=== PATIENT | male | born 1965 | race Caucasian/White ===

== ENCOUNTER 2017-02-01 17:45 | Emergency (ER) | payer BC, OTHER ==
[~2017-02-01] VITALS: Ht 182.9 cm; Wt 123.9 kg
[2017-02-01 18:58] LABS: BASOPHIL COUNT 0.1 K/uL (0-0.1); EOSINOPHIL (%) 0.2 % (0-5); HEMATOCRIT 45.7 % (38.0-50.0); IMMATURE GRANULOCYTE (%) 0.5 % (0.0-0.7); IMMATURE GRANULOCYTE COUNT 0.1 K/uL; INSTRUMENT ABS NEUTROPHIL CT 13.3 K/uL; LYMPHOCYTE COUNT 1.4 K/uL (1.0-2.8); MCH 34.7 PG (29.0-34.0); MCHC 34.4 G/DL (30.0-36.0); MCV 100.9 FL (86-99); MEAN PLAT.VOLUME 9.7 uM^3 (9.0-12.4); MONOCYTE (%) 7.1 % (3-12); MONOCYTE COUNT 1.1 K/uL (0-0.8); NEUTROPHIL (%) 83.3 % (45-76); NEUTROPHIL COUNT 13.3 K/uL (1.8-6.4); PLATELET COUNT 204 K/uL (156-360); RBC DIS.WIDTH-CV 13.6 % (11.8-14.6); RBC DIS.WIDTH-SD 51.4 % (39-53); RED BLOOD COUNT 4.53 M/uL (4.00-5.50)
[2017-02-01 19:10] LABS: CHLORIDE 100 mEq/L (99-109); POTASSIUM 4.2 mEq/L (3.7-5.4)
[2017-02-01 19:11] LABS: SODIUM 137 mEq/L (136-147)
[2017-02-01 19:13] LABS: GLUCOSE 112 mg/dL (70-99)
[2017-02-01 19:14] LABS: ANION GAP 13 MEQ/L (2-14)
[2017-02-01 19:15] LABS: TOTAL BILIRUBIN 1.6 mg/dL (0.0-1.0)
[2017-02-01 19:16] LABS: ALKALINE PHOSPHATASE 59 IU/L (3-129); GFR ESTIMATE (CALCULATED) > 59 mL/min/ (58.99-99999)
[2017-02-01 19:18] LABS: UREA NITROGEN (BUN) 10 mg/dL (9-23)
[2017-02-01 19:20] LABS: LIPASE 21 U/L (1.0-51.0)
[2017-02-01] MEDS ORDERED: ZOFRAN ODT4 MG PO (20:21)
[2017-02-01] MEDS ORDERED: PERCOCET 5/31 TABLET PO (20:21)
[2017-02-01] MEDS ORDERED: FLAGYL500 MG PO (20:21)
[2017-02-01] MEDS ORDERED: CIPRO500 MG PO (20:21)
[2017-02-01 20:35] LABS: ADD MIUA? YES; BILIRUBIN NEGATIVE; BLOOD SMALL; COLOR YELLOW ((YELLOW)); GLUCOSE (STRIP) NEGATIVE; KETONES NEGATIVE; LEUKOCYTES NEGATIVE; NITRITE NEGATIVE; PROTEIN (STRIP) 30; UROBILINOGEN 0.2 MG/DL (0.2-1.0)
[2017-02-01 20:52] LABS: BACTERIA NONE SEEN /HPF; EPITHELIAL CELLS RARE /HPF; MUCUS NONE SEEN /LPF; RED BLOOD CELLS 0-5 /HPF (0-5); WHITE BLOOD CELLS 0-5 /HPF (0-5)
[2017-02-01 21:11] VITALS: BP 139/107
== END 2017-02-01 21:11 | disposition home or self-care (01) ==
LOC: EME 17:45
PROVIDERS: Physician Assistant
DX: K57.32 Diverticulitis of large intestine without perforation or abscess without bleeding (principal); I10 Essential (primary) hypertension; M10.9 Gout, unspecified
CPT/HCPCS: 74177; 80053; 81003; 83690; 85025; 99281; 99285; J2405; J3010; J7030

== ENCOUNTER 2017-02-27 22:30 | Emergency (ER) | payer BC, OTHER ==
[~2017-02-27] VITALS: Ht 185.4 cm; Wt 126.7 kg
[~2017-02-27 22:30] MED LIST: CIPRO500 MG PO; FLAGYL500 MG PO; PERCOCET 5/31 TABLET PO; ZOFRAN ODT4 MG PO
[2017-02-28 00:03] LABS: HEMOGLOBIN 16.2 G/DL (12.5-16.6); MCH 34.7 PG (29.0-34.0); MCHC 35.2 G/DL (30.0-36.0); MCV 98.5 FL (86-99); PLATELET COUNT 177 K/uL (156-360); RBC DIS.WIDTH-CV 13.4 % (11.8-14.6); RBC DIS.WIDTH-SD 48.1 % (39-53); RED BLOOD COUNT 4.67 M/uL (4.00-5.50); WHITE BLOOD COUNT 10.6 K/uL (4.1-10.2)
[2017-02-28 00:13] LABS: ALBUMIN 4.8 g/dL (3.2-4.8)
[2017-02-28 00:14] LABS: CHLORIDE 103 mEq/L (99-109); POTASSIUM 3.9 mEq/L (3.7-5.4); SODIUM 135 mEq/L (136-147)
[2017-02-28 00:16] LABS: GLUCOSE 134 mg/dL (70-99); TOTAL PROTEIN 8.1 g/dL (6.4-8.3)
[2017-02-28 00:18] LABS: TOTAL BILIRUBIN 1.1 mg/dL (0.0-1.0)
[2017-02-28 00:19] LABS: ALKALINE PHOSPHATASE 60 IU/L (3-129)
[2017-02-28 00:20] LABS: GFR ESTIMATE (CALCULATED) > 59 mL/min/ (58.99-99999)
[2017-02-28 00:21] LABS: AST (GOT) 32 IU/L (2-34); UREA NITROGEN (BUN) 18 mg/dL (9-23)
[2017-02-28 00:23] LABS: ALT (GPT) 46 IU/L (3-49)
[2017-02-28 01:06] LABS: APPEARANCE CLEAR ((CLEAR)); BILIRUBIN NEGATIVE; BLOOD SMALL; COLOR YELLOW ((YELLOW)); GLUCOSE (STRIP) NEGATIVE; KETONES 5; LEUKOCYTES NEGATIVE; NITRITE NEGATIVE; PROTEIN (STRIP) 100; SPECIFIC GRAVITY 1.024 (1.000-1.030); UROBILINOGEN 0.2 MG/DL (0.2-1.0)
[2017-02-28 01:13] LABS: BACTERIA NONE SEEN /HPF; EPITHELIAL CELLS RARE /HPF; HYALINE CASTS 0-5 /LPF; MUCUS TRACE /LPF; RED BLOOD CELLS 0-5 /HPF (0-5); UCUL ADDED? NO; WHITE BLOOD CELLS 0-5 /HPF (0-5)
[2017-02-28] MEDS ORDERED: PERCOCET 5/31 TABLET PO (02:29)
[2017-02-28] MEDS ORDERED: VALIUM5 MG PO (02:29)
[2017-02-28] MEDS ORDERED: ZOFRAN ODT4 MG PO (02:32)
[2017-02-28 03:51] VITALS: BP 111/75
== END 2017-02-28 03:51 | disposition home or self-care (01) ==
LOC: EME 22:30
PROVIDERS: Physician Assistant
DX: S29.011A Strain of muscle and tendon of front wall of thorax, initial encounter (principal); B34.9 Viral infection, unspecified; I10 Essential (primary) hypertension; M10.9 Gout, unspecified; K57.92 Diverticulitis of intestine, part unspecified, without perforation or abscess without bleeding; Y93.H9 Activity, other involving exterior property and land maintenance, building and construction
CPT/HCPCS: 71101; 80053; 81003; 85027; 87502; 99281; 99284; J2270